=== PATIENT | male | born 1990 | race Caucasian/White ===

== ENCOUNTER 2020-06-06 04:13 | Emergency (ER) | payer BC ==
[~2020-06-06] VITALS: Ht 177.8 cm; Wt 106.6 kg
--- NOTE | 2020-06-06 04:29 | NUR ---
DR. FRANCISCO AT BEDSIDE FOR MSE.
[2020-06-06] MEDS ORDERED: TDAP DIPH,PERTUSS,TET VAC/PF 0.5 ML DISP.SYRIN IM ONE (04:45)
--- NOTE | 2020-06-06 04:57 | NUR ---
PATIENT REFUSED TDAP VACCINE, DR. WAGONER NOTIFIED.
[2020-06-06 05:22] VITALS: BP 146/99
--- NOTE | 2020-06-06 05:22 | NUR ---
Patient discharged to home in stable condition. Written and verbal after care instructions given. Patient verbalizes understanding of instructions. Stressed follow up or return to ER for worsening s/s. Patient left with stable gait.
== END 2020-06-06 05:23 | disposition home or self-care (01) ==
LOC: ER 04:20
DX: S91.312A Laceration without foreign body, left foot, initial encounter (principal); W25.XXXA Contact with sharp glass, initial encounter; Y92.89 Other specified places as the place of occurrence of the external cause
CPT/HCPCS: 73630; A4217; A4663

== ENCOUNTER 2020-06-11 14:24 | Emergency (ER) | payer BC ==
[~2020-06-11] VITALS: Ht 177.8 cm; Wt 108.9 kg
--- NOTE | 2020-06-11 15:18 | NUR ---
Dr. Alicia at bedside for MSE
[2020-06-11] MEDS ORDERED: NEOMY/BACITRA/POLYMYXIN B OINT UD PACKET TP ONE ×2 (15:30→15:35)
--- NOTE | 2020-06-11 15:44 | NUR ---
Patient discharged to home in stable condition. Written and verbal after care instructions given. Patient verbalizes understanding of instructions. Stressed follow up or return to ER for worsening s/s. Patient ambulated with steady gait with cane. NAD noted
[2020-06-11 16:09] VITALS: BP 138/73
== END 2020-06-11 15:44 | disposition home or self-care (01) ==
LOC: ER 14:25
DX: S91.312D Laceration without foreign body, left foot, subsequent encounter (principal); X58.XXXD Exposure to other specified factors, subsequent encounter; S90.822A Blister (nonthermal), left foot, initial encounter; X58.XXXA Exposure to other specified factors, initial encounter; Y92.89 Other specified places as the place of occurrence of the external cause
CPT/HCPCS: A4663